=== PATIENT | female | born 1950 | race Two or more races ===

== ENCOUNTER 2019-01-09 06:16 | Day surgery (SDC) | payer OTHER ==
[~2019-01-09 06:16] MED LIST: ALTACE5 MG PO; ATORVASTATIN CA20 MG PO; GABAPENTIN100 MG; SERTRALINE HCL50 MG PO
== END 2019-01-09 16:10 | disposition home or self-care (01) ==
LOC: CIR.AMB 06:16
DX: C50.512 Malignant neoplasm of lower-outer quadrant of left female breast (principal)